=== PATIENT | female | born 1990 | race African-American/Black ===

== ENCOUNTER 2017-06-29 23:05 | Emergency (ER) | payer OTHER, SELFPAY ==
[2017-06-30 00:18] LABS: #Basophils 0.1 thou/uL (0.0-0.2); #Eosinphils 0.3 thou/uL (0.0-0.7); #Lymphocytes 3.4 thou/uL (1.20-3.40); #Monocytes 0.7 thou/uL (0.11-0.59); %Basophils 0.6 % (0.0-1.0); %Eosinophils 2.3 % (0.0-10.0); %Lymphocytes 29.9 % (21.0-51.0); %Monocytes 6.4 % (0.0-10.0); Hematocrit 42.3 % (36.0-47.0); Mean Platelet Volume 7.5 fL (7.4-10.4); Red Blood Cell (RBC) Count 4.98 mill/uL (4.20-5.40); White Blood Cell (WBC) Count 11.5 thou/uL (4.8-10.8)
[2017-06-30 00:38] LABS: ALT (SGPT) 18 U/L (8-55); AST (SGOT) 12 U/L (5-34); Alkaline Phosphatase 84 U/L (40-150); Anion Gap 12 mmol/L (10-20); BUN (Urea Nitrogen) 8 mg/dL (7.0-18.7); Bilirubin, Total 0.2 mg/dL (0.2-1.2); Calc. Creatinine Clearance 0 mL/min (70-130); Carbon Dioxide 26 mmol/L (22-29); Chloride 105 mmol/L (98-107); Estimated GFR-MDRD 89; Globulin 3.4 g/dL (2.4-3.5); Protein, Total 7.1 g/dL (6.0-8.3)
[2017-06-30] MEDS ORDERED: Ibuprofen 800 MG TAB ONE (02:21)
== END 2017-06-30 02:28 | disposition home or self-care (01) ==
LOC: ERS 23:05
DX: R59.0 Localized enlarged lymph nodes (principal); F17.210 Nicotine dependence, cigarettes, uncomplicated; Z71.6 Tobacco abuse counseling
CPT/HCPCS: 36415; 80053; 85025; 99406

== ENCOUNTER 2018-09-04 14:19 | Emergency (ER) | payer SELFPAY ==
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
[2018-09-04] MEDS ORDERED: Adacel (T-DAP) 0.5 ML SYRINGE ONE (16:16)
[2018-09-04] MEDS ORDERED: HYDROcodone/Acetaminophen 10/325 mg Tablet ONE (17:06)
[2018-09-04] MEDS ORDERED: Lidocaine 1% (PF) 30 ML VIAL ONE (17:06)
== END 2018-09-04 18:31 | disposition home or self-care (01) ==
LOC: ERS 14:19
DX: S01.511A Laceration without foreign body of lip, initial encounter (principal); S60.414A Abrasion of right ring finger, initial encounter; F17.210 Nicotine dependence, cigarettes, uncomplicated; Y04.0XXA Assault by unarmed brawl or fight, initial encounter
CPT/HCPCS: 12013; 70450; 70486; 72125; 90471; 90715; J2001

== ENCOUNTER 2020-05-06 10:33 | Emergency (ER) | payer SELFPAY ==
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
== END 2020-05-06 13:21 | disposition home or self-care (01) ==
LOC: ERS 10:33
DX: S92.352A Displaced fracture of fifth metatarsal bone, left foot, initial encounter for closed fracture (principal); S93.402A Sprain of unspecified ligament of left ankle, initial encounter; F17.210 Nicotine dependence, cigarettes, uncomplicated; Z79.899 Other long term (current) drug therapy; X50.1XXA Overexertion from prolonged static or awkward postures, initial encounter

== ENCOUNTER 2021-09-02 15:59 | Emergency (ER) | payer SELFPAY | END 2021-09-02 19:23 | disposition home or self-care (01) | LOC: ERS 15:59 | DX: M79.671 Pain in right foot (principal); M93.271 Osteochondritis dissecans, right ankle and joints of right foot; F17.210 Nicotine dependence, cigarettes, uncomplicated ==

== ENCOUNTER 2022-09-19 07:45 | Emergency (ER) | payer OTHER, SELFPAY ==
[2022-09-19 10:23] LABS: Bacteria/HPF 1+ HPF (None Seen); Bilirubin Negative (Negative); Blood, Urine Negative (Negative); Clarity Turbid (Clear); Glucose, Urine (Dipstick) Greater than 1000 mg/dL (Negative); Ketone, Urine 10 mg/dL (Negative); Leukocyte 500 Leu/uL (Negative); Nitrite Negative (Negative); Protein, Urine (Dipstick) 10 mg/dL (Neg-Trace); Urobilinogen Normal mg/dL (Less than 2)
[2022-09-19 10:25] LABS: Pregnancy Test - Urine (BHCG) POSITIVE (Negative); Pregu Control Background? CLEAR/WHITE (CLR/WHITE); Pregu Control Bar Appear? YES (CONTROL BAR)
== END 2022-09-19 10:04 | disposition home or self-care (01) ==
LOC: ERS 07:45
DX: O9A.23 Injury, poisoning and certain other consequences of external causes complicating the puerperium (principal); Z3A.01 Less than 8 weeks gestation of pregnancy; W01.198A Fall on same level from slipping, tripping and stumbling with subsequent striking against other object, initial encounter
CPT/HCPCS: 76856; 81003; 81015; 81025; 93976